=== PATIENT | male | born 1985 | race African-American/Black ===

== ENCOUNTER 2023-07-24 12:28 | Emergency (ER) | payer OTHER ==
[~2023-07-24] VITALS: Ht 190.5 cm; Wt 109.0 kg
[2023-07-24 12:32] VITALS: TEMP 98.1; O2SAT 99
[2023-07-24 12:45] VITALS: BP 128/85; PULSE 94; RESP 16
[2023-07-24] MEDS: IBUPROFEN 400MG TABLET PO ONE (12:45)
== END 2023-07-24 13:50 ==
LOC: ER 12:28
DX: S50.811A Abrasion of right forearm, initial encounter (principal); M25.511 Pain in right shoulder; V98.8XXA Other specified transport accidents, initial encounter; Y93.89 Activity, other specified; Y92.89 Other specified places as the place of occurrence of the external cause; Y99.8 Other external cause status
CPT/HCPCS: 73030; 73090; 99284